=== PATIENT | male | born 1990 | race Hispanic/Latino ===

== ENCOUNTER 2019-10-05 16:06 | Emergency (ER) | payer SELFPAY ==
[2019-10-05] MEDS ORDERED: Ketorolac Tromethamine 30 MG/ML VIAL ONE (17:48)
[2019-10-05] MEDS ORDERED: Ondansetron ODT 4 MG TAB ONE (17:48)
[2019-10-05] MEDS ORDERED: levETIRAcetam 500 MG TAB ONE (17:48)
[2019-10-05] MEDS ORDERED: Triple Antibiotic Oint 1 GM Packet ONE (18:11)
== END 2019-10-05 18:20 | disposition home or self-care (01) ==
LOC: MADERS 16:06
DX: G40.909 Epilepsy, unspecified, not intractable, without status epilepticus (principal); S00.81XA Abrasion of other part of head, initial encounter; W22.8XXA Striking against or struck by other objects, initial encounter
CPT/HCPCS: 96372; 99284; J1885; Q0162